=== PATIENT | male | born 1955 | race Caucasian/White ===

== ENCOUNTER 2019-08-22 00:34 | Day surgery (SDC) | payer OTHER, SELFPAY ==
[2019-08-15 14:32] VITALS: BMI 29.1
[2019-08-22 07:37] VITALS: BP 110/68; PULSE 61; RESP 16; TEMP 36.5; O2SAT 96; BMI 27.4
[2019-08-22] MEDS: LACTATED RINGERS 1,000 ML 150 ML IV CONT (07:50)
--- NOTE | 2019-08-22 07:51 | PM.HPGS ---
History of Present Illness History of Present Illness Consent: Risks, benefits, and alternatives have been discussed and questions answered. Patient agrees to proceed with procedure. Chief complaint: neoplasm screening Narrative: Dilshad Reilly is a 64 year old male Referred for colon cancer screening. He recently underwent testing with a colo guard test that was positive. He has had no blood in his stools. This is his 1st colonoscopy [facility] Past Medical History Medical History (Updated 07/31/19 @ 12:07 by Ulises Beckwith MD) Abnormal fasting glucose Colon cancer screening Male erectile dysfunction, unspecified Family History Family History Mother Patient's mother is , Onset Age: 95 Patient's mother is in good health Father Patient's father is , Onset Age: 71 Family history of congestive heart failure Sibling Acute myocardial infarction Social History Social History Smoking status: Never smoker Alcohol intake: current Meds Home Medications and Allergies Home Medications Medication Instructions Recorded Confirmed Type baclofen 10 mg tablet 10 mg PO DAILY PRN #30 tablet 08/01/19 08/15/19 Rx tramadol 50 mg tablet 50 mg PO Q6H PRN #60 tablet 08/01/19 08/15/19 Rx bjasgwcddopc-jpi-vyum-FA-vit K 1 tablet PO DAILY 08/15/19 08/15/19 History [Adults Multivitamin] Allergies Allergy/AdvReac Type Severity Reaction Status Date / Time No Known Allergies Allergy Unknown Verified 08/22/19 07:36 Vital Signs Vital Signs - 24 hr 08/22/19 07:37 Temperature 36.5 C Pulse Rate 61 Respiratory Rate 16 Blood Pressure 110/68 Pulse Oximetry 96 Exam Resp: Auscultation: clear to auscultation bilaterally Cardio: Rate: regular rate Rhythm: regular rhythm GI: GI Palp: Yes Soft to palpation and No Tenderness to palpation present (GI) Assessment and Plan Assessment and plan (1) Colon cancer screening: Code(s): Z12.11 - Encounter for screening for malignant neoplasm of colon Status: Acute Assessment and Plan: Colonoscopy with possible biopsy or polypectomy or cautery or injection of substances.
--- NOTE | 2019-08-22 08:24 | WPDANESEPPF ---
Anes - Initial Pre Proc Eval Procedure: Operation Date: 08/22/19 08:30 Proposed Procedures p Screening Colonoscopy - Fletcher Karimi MD Date/Time: 08/22/19 08:24 Surgeon: Fletcher Karimi MD Pre Op Diagnosis: neoplasm screening Patient Data Age: 64 Gender: M Height: 5 ft 8 in Weight: 82 kg Last Vital Signs Temp 97.7 F 08/22/19 07:37 Pulse 61 08/22/19 07:37 Resp 16 08/22/19 07:37 BP 110/68 08/22/19 07:37 Pulse Ox 96 08/22/19 07:37 Allergies Allergy/AdvReac Type Severity Reaction Status Date / Time No Known Allergies Allergy Unknown Verified 08/22/19 07:36 Home Medications Medication Instructions Recorded Confirmed Type baclofen 10 mg tablet 10 mg PO DAILY PRN #30 tablet 08/01/19 08/15/19 Rx tramadol 50 mg tablet 50 mg PO Q6H PRN #60 tablet 08/01/19 08/15/19 Rx qltocfbmimlx-ilk-nhyd-FA-vit K 1 tablet PO DAILY 08/15/19 08/15/19 History [Adults Multivitamin] Patient hx anesthesia problems: none Family hx anesthesia problems: none PMFSH Past Medical History Medical History (Updated 07/31/19 @ 12:07 by Ulises Beckwith MD) Abnormal fasting glucose Colon cancer screening Male erectile dysfunction, unspecified Family History Family History Mother Patient's mother is , Onset Age: 95 Patient's mother is in good health Father Patient's father is , Onset Age: 71 Family history of congestive heart failure Sibling Acute myocardial infarction Social History Social History Smoking status: Never smoker Alcohol intake: current Anes - Eval Final PreProcedure Day of Procedure 08/22/19 08:24 Patient weight: normal Heart: regular rate and rhythm Lungs: clear to auscultation Airway: Mallampati scale class II Neurological: alert and oriented Last oral intake: >/= 8 hours ASA classification: II Emergent: no Anesthetic plan: proceed Anesthesia type and monitoring: general GIVS and standard monitoring Informed Consent: The patient's anesthetic plan and its attendant risks and benefits were discussed with the patient/family/POA. Questions were solicited and answers provided to the satisfaction of the patient/family/POA.
[2019-08-22 08:43] VITALS: BP 90/62; PULSE 63; RESP 17; O2SAT 94
[2019-08-22 08:53] VITALS: BP 96/71; PULSE 68; RESP 18; O2SAT 97
[2019-08-22 09:03] VITALS: BP 95/41; PULSE 63; RESP 20; O2SAT 100
== END 2019-08-22 09:07 | disposition home or self-care (01) ==
PROVIDERS: PCP Family Medicine; Visit Provider Internal Medicine Gastroenterology
PROC: 0DJD8ZZ Inspection of Lower Intestinal Tract, Via Natural or Artificial Opening Endoscopic (ICD-10-PCS; CPT 45378; principal; 2019-08-22 08:30)
DX: Z12.11 Encounter for screening for malignant neoplasm of colon (principal); R19.5 Other fecal abnormalities
CPT/HCPCS: 45378; J2704; J7120

== ENCOUNTER → 2021-10-19 11:22 | Outpatient (CLI) | payer MEDICARE, OTHER, SELFPAY ==
--- NOTE | ~2021-10-19 | XR_ITS ---
XR lumbar spine min 4V DATE: 10/19/2021 11:47 INDICATION: Low back pain TECHNIQUE: AP, lateral, bilateral oblique views and coned lateral lumbosacral view COMPARISON: None FINDINGS: There is degenerative spurring of the lower thoracic spine. Normal alignment of the lumbar spine. There is moderate moderate degenerative disc disease at L2-3, moderately severe degenerative disc dis ease at L3-4, L4-5 and mild degenerative disc disease at L5-S1. No fracture or bone destruction is detected. The lumbar pedicles are intact. There is degenerative change at the lower lumbar apophyseal joints. No spondylolysis or spondylolisth esis. The sacroiliac joints are intact. IMPRESSION: Degenerative changes of the lower thoracic and lumbar spine Reviewed, dictated and finalized at location A.
--- NOTE | ~2021-10-19 | XR_ITS ---
EXAM: XR cervical spine 4-5V HISTORY: M54.2 - Cervicalgia COMPARISON: 01/03/2007. FINDINGS: C6-7 ACDF, intact hardware, stable interbody plug. Craniocervical association and atlantoa xial joint are normal. Normal prevertebral soft tissues. Normal cervical alignment. Multilevel degene rative disc disease, moderate at C5-6 and C6-7. 2 mm anterolisthesis of C7 on T1. Multilevel facet hy pertrophy. IMPRESSION: Uncomplicated C6-7 ACDF. Grade 1 anterolisthesis of C7 on T1. Moderate degenerative disc disease at C 5-6 and C6-7. Multilevel facet arthropathy. Reviewed, dictated and finalized at location K. IMPRESSION: Uncomplicated C6-7 ACDF. Grade 1 anterolisthesis of C7 on T1. Moderate degenera tive disc disease at C5-6 and C6-7. Multilevel facet arthropathy.
== END ==
PROVIDERS: PCP Family Medicine; Visit Provider Family Medicine
DX: M50.323 Other cervical disc degeneration at C6-C7 level (principal); M51.34 Other intervertebral disc degeneration, thoracic region; M51.36 Other intervertebral disc degeneration, lumbar region
CPT/HCPCS: 72050; 72110

== ENCOUNTER → 2022-10-06 08:49 | Outpatient (CLI) | payer MEDICARE, OTHER, SELFPAY ==
--- NOTE | ~2022-10-06 | CT_ITS ---
CT of the Abdomen and Pelvis: Indication: Left renal mass Technique: 2.5 mm axial scans were obtained through the abdomen and pelvis prior to and following in travenous administration of 100 cc of Omnipaque 350. Dose reduction technique was used on this scan b y utilizing automated exposure control and iterative reconstruction technique. The dose-length produc t (DLP) was 1258.11 mGy-cm. Findings: Scans through the lung bases are unremarkable. The liver, spleen, pancreas, gallbladder, adrenals and right kidney are within normal limits. There i s a 2.6 cm solid, enhancing mass at the medial aspect of the left kidney (axial postcontrast image 87 for example). No evidence of aortic aneurysm. No lymphadenopathy. No bowel obstruction or bowel wall thickening. There is no evidence to suggest acute appendicitis. Du odenal diverticulum noted. Images through the pelvis were performed. Urinary bladder unremarkable. Prostate gland is mildly enla rged. No ascites. Impression: 2.6 cm solid, enhancing left renal mass, suspicious for renal cell carcinoma until proven otherwise. Reviewed, dictated and finalized at location . Impression: 2.6 cm solid, enhancing left renal mass, suspicious for renal cell carcinoma un til proven otherwise.
[2022-10-06 09:19] LABS: Estimated Glomerular Filt Rate > 60
== END ==
PROVIDERS: PCP Family Medicine; Visit Provider Family Medicine
DX: N28.89 Other specified disorders of kidney and ureter (principal)
CPT/HCPCS: 74178; Q9967

== ENCOUNTER 2023-08-23 13:09 | Outpatient (CLI) | payer MEDICARE, OTHER, SELFPAY ==
--- NOTE | ~2023-08-23 | XR_ITS ---
EXAMINATION: XR hand RT min 3V DATE: 08/23/2023 13:28 INDICATION: Right hand pain. Fall. TECHNIQUE: 3 views of right hand were obtained. COMPARISON: None. FINDINGS: Bone alignment is normal. No fracture. There is mild osteoarthritis of first carpometacarpa l joint and many of the metacarpophalangeal joints and interphalangeal joints. There is severe osteoa rthritis of third and fifth distal interphalangeal joints and moderate osteoarthritis of first interp halangeal joint and second and fourth distal interphalangeal joints. IMPRESSION: 1. Polyarticular osteoarthritis. Reviewed, dictated and finalized at location A. HING YOUNG
== END 2023-08-23 13:10 | disposition home or self-care (01) ==
PROVIDERS: PCP Family Medicine; Visit Provider Family Medicine
DX: M19.041 Primary osteoarthritis, right hand (principal)
CPT/HCPCS: 73130

== ENCOUNTER 2023-11-03 10:31 | Outpatient (CLI) | payer MEDICARE, OTHER, SELFPAY ==
--- NOTE | ~2023-11-03 | CT_ITS ---
Clinical Indication: Renal cell carcinoma CT Scan of the Chest and Abdomen with Contrast: Technique: Contiguous sections were acquired throughout the chest and abdomen after intravenous admin istration of 100 cc of Omnipaque 350. Dose reduction technique was used on this scan by utilizing au tomated exposure control and iterative reconstruction technique. The dose-length product (DLP) was 66 7.88 mGy-cm. COMPARISON: 10/06/2022 Findings: There is no evidence of any significant mediastinal, hilar or axillary lymphadenopathy. The mediastin al soft tissues appear normal. There is no evidence of pleural or pericardial effusion. There are right upper lobe/apical nodules measuring 10 and 8 mm in diameter each, with adjacent strea ky opacities, suggestive nodular chronic scarring, with focal adjacent calcifications (axial images 3 6-38). Calcified right basilar granuloma present. No other pulmonary abnormality seen. The liver, spleen, pancreas, gallbladder, adrenals and right kidney are within normal limits. Status post left nephrectomy. No evidence of aortic aneurysm. No lymphadenopathy. Visualized bowel loops are unremarkable.. No ascites. Impression: No definite active malignancy or metastatic disease. Status post left nephrectomy. Right upper lobe nodules are felt to be associated with nodular chronic scarring, though this is not definitive. Comparison with any prior chest CTs or PET CTs if available at other institutions would b e useful to assess for chronicity of these findings. Otherwise, recommend 3 month follow-up CT to ass ess for stability, or possibly PET/CT as indicated. Reviewed, dictated and finalized at [facility]. Impression: No definite active malignancy or metastatic disease. Status post left nephrecto my. Right upper lobe nodules are felt to be associated with nodular chronic scarrin g, though this is not definitive. Comparison with any prior chest CTs or PET CT s if available at other institutions would be useful to assess for chronicity o f these findings. Otherwise, recommend 3 month follow-up CT to assess for stabi lity, or possibly PET/CT as indicated.
[2023-11-03 10:52] LABS: Estimated Glomerular Filt Rate 60
== END 2023-11-03 10:32 | disposition home or self-care (01) ==
LOC: ANHIMG 10:37
PROVIDERS: PCP Family Medicine; Visit Provider Urology
DX: C64.2 Malignant neoplasm of left kidney, except renal pelvis (principal); R91.8 Other nonspecific abnormal finding of lung field
CPT/HCPCS: 71260; 74160; Q9967

== ENCOUNTER 2024-02-28 09:29 | Outpatient (CLI) | payer MEDICARE, OTHER, SELFPAY ==
--- NOTE | ~2024-02-28 | CT_ITS ---
EXAMINATION:CT diagnostic chest w con DATE: 02/28/2024 10:18 INDICATION: Pulmonary nodule. TECHNIQUE: Computed tomography (CT) of the chest was performed with 75 mL Omnipaque 350 intravenous c ontrast. Automated exposure control and iterative reconstruction technique were employed. The dose-le ngth product (DLP) was 244.57 mGy-cm. COMPARISON: Chest CT 11/03/23 FINDINGS: There is mild scarring at the lung apices. There is mild dependent atelectasis bilaterally. There is mild scarring in paraspinal right lower lobe. There are 3 nodules measuring up to 7 mm in r ight upper lobe with associated scarring. No pleural effusion. The heart is normal. No pericardial ef fusion. There are cysts in the liver measuring up to 19 mm. There are changes of left nephrectomy. Th ere are changes of anterior fusion procedure in cervical spine. There is mild thoracic spondylosis. IMPRESSION: 1. Right upper lobe nodules measuring up to 7 mm, stable from 11/03/2023, which may be granulomatous d isease or less likely metastatic disease. Consider noncontrast chest CT in 6 months. Reviewed, dictated and finalized at location A. IMPRESSION: 1. Right upper lobe nodules measuring up to 7 mm, stable from 11/03/2023, which may be granulomatous disease or less likely metastatic disease. Consider noncon trast chest CT in 6 months.
[2024-02-28 10:07] LABS: Estimated Glomerular Filt Rate 55
== END 2024-02-28 09:30 | disposition home or self-care (01) ==
LOC: ANHIMG 09:36
PROVIDERS: PCP Family Medicine; Visit Provider Urology
DX: R91.1 Solitary pulmonary nodule (principal); R91.8 Other nonspecific abnormal finding of lung field
CPT/HCPCS: 71260; Q9967